=== PATIENT | male | born 1975 | race Asian ===

== ENCOUNTER 2019-02-15 10:24 | Emergency (ER) | payer BC ==
[~2019-02-15] VITALS: Ht 167.6 cm; Wt 63.5 kg
[2019-02-15 10:39] VITALS: Ht 167.6 cm; Wt 63.5 kg
[2019-02-15 11:29] LABS: BASOPHIL % 0.4 % (0-2); PLATELET COUNT 173 x10^3mcL (130-400)
[2019-02-15 11:32] LABS: RED CELL DISTRIBUTION WIDTH 20.2 % (11.5-14.5)
[2019-02-15 11:49] LABS: CALCIUM 8.4 mg/dL (8.5-10.1); CARBON DIOXIDE 21.4 mmol/L (21-32); CHLORIDE SERUM 105 mmol/L (98-107); CREATININE SERUM 0.8 mg/dL (0.7-1.3); FREE T4 1.13 ng/dL (0.76-1.46); FREE THYROXINE INDEX 3.1 ug/dL (1.4-4.5); GFR1 > 60 mL/min; GLUCOSE SERUM 119 mg/dL (74-106); POTASSIUM SERUM 4.8 mmol/L (3.5-5.1); SODIUM SERUM 140 mmol/L (136-145); T4(THYROXINE) 9.8 ug/dL (4.7-13.3)
[2019-02-15 11:55] LABS: CK-MB 0.6 ng/mL (0-3.6); T3 TOTAL 1.2 ng/mL
[2019-02-15 12:05] LABS: ALKALINE PHOSPHATASE 65 U/L (46-116); ALT/SGPT 46 U/L (16-63); AST/SGOT 110 U/L (15-37); TOTAL PROTEIN, SERUM 6.3 g/dL (6.4-8.2)
[2019-02-15 12:06] LABS: acanthocyte (spur cell) 1+; ovalocyte/elliptocyte 1+; schistocyte (helmet cell) 1+; tear drop cell (dacryocyte) 1+
[2019-02-15 12:07] LABS: rbc morphology (normal/abnorm) ABNORMAL (NORMAL)
[2019-02-15 12:09] LABS: ALBUMIN 3.3 g/dL (3.4-5.0)
[2019-02-15 12:21] LABS: ERYTHROCYTE SED RATE 32 mm/hr (0-15)
[2019-02-15] MEDS ORDERED: TRAMADOL HCL50 MG PO (12:53)
[2019-02-15] MEDS ORDERED: FEROSUL325 M1 PO (12:53)
[2019-02-15] MEDS ORDERED: CARVEDILOL12.5 M1 PO (12:54)
[2019-02-15] MEDS ORDERED: PROTONIX40 MG PO (12:54)
[2019-02-15] MEDS ORDERED: COUMADIN1 MG PO (12:54)
[2019-02-15] MEDS ORDERED: ENTRESTO1 TA2 PO (12:55)
[2019-02-15 14:38] LABS: microscopic required? YES; urine erythrocyte 3+ (NEGATIVE)
[2019-02-15 14:40] LABS: BASOPHIL % 0.4 % (0-2); PLATELET COUNT 176 x10^3mcL (130-400)
[2019-02-15 14:42] LABS: RED CELL DISTRIBUTION WIDTH 20.3 % (11.5-14.5)
[2019-02-15 15:17] LABS: rbc morphology (normal/abnorm) ABNORMAL (NORMAL); schistocyte (helmet cell) 1+; tear drop cell (dacryocyte) 1+
[2019-02-15 17:40] VITALS: BP 108/72
== END 2019-02-15 17:40 | disposition short-term general hospital (02) ==
LOC: ED 10:24
PROVIDERS: Specialist
DX: I34.0 Nonrheumatic mitral (valve) insufficiency (principal); R57.9 Shock, unspecified; I31.3 Pericardial effusion (noninflammatory); D64.9 Anemia, unspecified; Z95.2 Presence of prosthetic heart valve
CPT/HCPCS: 36600; 83880; 84439; J2543; J3490; J7030; Q9967